=== PATIENT | male | born 1955 | race Caucasian/White ===

== ENCOUNTER 2017-09-04 08:46 | Outpatient (CLI) | payer BC ==
[2017-09-04 09:35] LABS: Bilirubin Negative (Negative); Blood, Urine Negative (Negative); Clarity CLEAR (Clear); Glucose, Urine (Dipstick) Negative (Negative); Leukocyte Negative (Negative); Nitrite Negative (Negative); Protein, Urine (Dipstick) Negative (Neg-Trace); Prothrombin Time 12.8 SEC (12.0-14.7); Specific Gravity, Urine 1.017 (1.002-1.036); Urobilinogen 0.2 mg/dL (0.2-1.0); pH, Urine 7.5 (5.0-9.0)
[2017-09-04 09:36] LABS: Bacteria/HPF None Seen HPF (None Seen); Hyaline Casts/LPF 0-3 HYALINE CAST LPF (0-3 Hyaline); RBC/HPF 0-3 HPF (0-3); Squamous Epithelial None Seen HPF (0-3); WBC/HPF None Seen HPF (0-3)
--- NOTE | 2017-09-04 23:42 | EKG ---
Test Reason : Blood Pressure : / mmHG Vent. Rate : 070 BPM Atrial Rate : 070 BPM P-R Int : 172 ms QRS Dur : 086 ms QT Int : 384 ms P-R-T Axes : 038 038 047 degrees QTc Int : 414 ms Normal sinus rhythm Normal ECG When compared with ECG of 19-FEB-2009 08:40, No significant change was found Confirmed by Fredy DE LA CRUZ ([id number]) on 09/04/2017 11:42:17 PM Referred By: FOUZIA Confirmed By:Fredy DE LA CRUZ
== END 2017-09-04 08:47 | disposition home or self-care (01) ==
LOC: LABBT 08:46
PROVIDERS: ATTEND Orthopaedic Surgery
DX: Z01.812 Encounter for preprocedural laboratory examination (principal); Z01.810 Encounter for preprocedural cardiovascular examination; M17.12 Unilateral primary osteoarthritis, left knee; Z88.5 Allergy status to narcotic agent
CPT/HCPCS: 81001; 85610; 86850; 86900; 86901; 87081; 93005; 93010

== ENCOUNTER 2017-09-10 05:28 | Day surgery (SDC) | payer BC ==
[2017-09-04 09:26] VITALS: BMI 30.4
[2017-09-10] MEDS ORDERED: CEFAZOLIN/Water 2 GM/20 ML SYRINGE ONE (06:00)
[2017-09-10] MEDS ORDERED: Tranexamic Acid 1,000 MG/100 ML BAG ONE ×2 (06:00→09:17)
[2017-09-10] MEDS ORDERED: Vancomycin HCl 1.5 GM in Sodium Chloride 0.9% 250 ML 300 ML IVPB SCH ×2 (06:15→18:00)
[2017-09-10] MEDS ORDERED: Midazolam HCl 2 mg/2 ml Vial ONE (06:24)
[2017-09-10] MEDS ORDERED: Fentanyl 100 MCG/2 ML VIAL ONE ×3 (06:24→10:06)
[2017-09-10] MEDS ORDERED: Ropivacaine 0.2% HCl/PF 20 ML ONE (06:25)
[2017-09-10] MEDS ORDERED: Lidocaine 1% (PF) 30 ML VIAL ONE (06:25)
[2017-09-10] MEDS ORDERED: Scopolamine 1.5 mg/72 hour Patch ONE (06:30)
[2017-09-10] MEDS ORDERED: HYDROcodone/Acetaminophen 5/325 mg Tablet PO PRN (06:47)
[2017-09-10] MEDS ORDERED: Zolpidem Tartrate 5 MG TAB PO PRN ×2 (06:47→07:36)
[2017-09-10] MEDS ORDERED: Ondansetron HCl/PF 4 MG/2 ML Vial IVP PRN ×3 (06:47→07:59)
[2017-09-10] MEDS ORDERED: Promethazine HCl 25 MG/ML VIAL IM PRN ×3 (06:47→07:59)
[2017-09-10] MEDS ORDERED: traMADol HCl 50 MG TAB PO PRN ×3 (06:47→07:36)
[2017-09-10] MEDS ORDERED: Ropivacaine 0.2% 550 ML 550 ML NERVE BLCK SCH (06:47)
[2017-09-10] MEDS ORDERED: Fentanyl 100 MCG/2 ML VIAL IV PRN (06:48)
[2017-09-10] MEDS ORDERED: Bupivacaine PF 0.5% 30 ML VIAL ONE (06:49)
[2017-09-10] MEDS ORDERED: Acetaminophen 325 MG TAB PO PRN (07:36)
[2017-09-10] MEDS ORDERED: HYDROcodone/Acetaminophen 10/325 mg Tablet PO PRN ×2 (07:36)
[2017-09-10] MEDS ORDERED: diphenhydrAMINE 25 MG CAP PO PRN (07:36)
[2017-09-10] MEDS ORDERED: Tranexamic Acid 1,000 MG in Sodium Chloride 0.9% 100 ML IVPB SCH (07:45)
[2017-09-10] MEDS ORDERED: Promethazine HCl 25 MG/ML VIAL SLOW IVP PRN (07:59)
[2017-09-10] MEDS ORDERED: Hydrochlorothiazide 25 MG TAB PO SCH ×2 (09:00→14:15)
--- NOTE | 2017-09-10 09:28 | OP ---
DATE OF PROCEDURE: 09/10/2017 PREOPERATIVE DIAGNOSIS: Left knee osteoarthrosis. POSTOPERATIVE DIAGNOSIS: Left knee osteoarthrosis. PROCEDURE PERFORMED: Left total knee replacement using Slemp pinless navigation. SURGEON: Alek Hsieh M.D. MANAGER SOURCING: Jasmeet Ascencio PA-C. BLOOD LOSS: Minimal. COMPLICATIONS: None. ANESTHESIA: He had general anesthetic, he also had a preoperative block. CONDITION: He did go to the recovery room in stable condition. IMPLANTS: Slemp Triathlon total knee system. Femur was size 7 cruciate retaining. Tibial basepla te was size 6 universal tibial baseplate. We used a 6 x 9 mm CSX3 tibial bearing and an asymmetric 3 2 x 10 X3 patella. DISPOSITION: He did go to the recovery room in stable condition. INDICATIONS: Mr. Gutierrez is a very active 62-year-old male who has significant left knee arthritis. At this time, he has failed nonoperative treatment and wished to have his knee replaced. PROCEDURE IN DETAIL: After all appropriate consent forms were explained and signed, the patient was t aken back to the Operating Room and at this time was given general anesthetic. Once the level of anes thesia was appropriate, a well-padded tourniquet was placed on the left leg and the leg was then prep ped and draped in standard surgical fashion. The limb was exsanguinated and tourniquet taken up to 30 0 mmHg. Midline incision was made with a 10 blade down through the skin and subcutaneous tissue. Bovi e electrocautery was used to coagulate any brisk venous bleeding. A new blade was used to make a medi al parapatellar arthrotomy. Small subperiosteal release was performed medially and excess fat pad was removed. The knee was flexed up to gain access to the femur. The femur was navigated and distal femo ral resection was made. Epicondylar access was used to align our sizing jig and this was pinned in pl joseline. We sized our femur to be a size7, 4:1 cutting block was applied and pinned. Anterior and posteri or chamfer cuts were then made. We navigated out our proximal tibia and made our proximal tibial rese ction. Spreaders were used to remove any posterior osteophytes off the back of the femur as well as r emaining meniscal tissue. A long alignment rodolfo was then used to achieve correct rotation of our tibia l baseplate and a size 6 was chosen. This was pinned in place. We trialed the polyethylene and a 6 x 9 mm CSX3 polyethylene gave us full extension and good stability throughout range of motion. Two towe l clips and a saw were used to cut our patella. Three lug nuts were drilled and 32 x 10 X3 patella wa s trialed which sat nicely in the trochlear groove. We then drilled our femur and punched our tibia. All components were removed. The knee was thoroughly irrigated and dried. Cement was mixed into the c ement gun on the back table. Components were then placed. The knee was held out in full extension unt il the cement had dried. All excess bone cement was removed. Multiple #2 Vicryl stitches as well as a Quill was used to close our extensor mechanism. 0 Quill followed by a running Monoderm was then use d to close the skin. Surgicel glue was then used on the skin. Once this had dried, soft tissue dressi ng was applied to the limb, tourniquet was let down, and the toes pinked up nicely. The patient was then awakened and taken to the Recovery Room in stable condition. All counts were correct at the end of the case. The patient did receive preoperative IV antibiotics. The patient was injected with Expa rel for postoperative pain relief.
[2017-09-10] MEDS: Sodium Chloride 0.9% 1,000 ML IV SCH ×2 (10:59→19:12)
[2017-09-10] MEDS: Multivitamin W/ Minerals 1 TAB PO SCH (11:00)
[2017-09-10] MEDS: Ferrous Gluconate 324 MG TAB PO SCH ×2 (11:00→20:23)
[2017-09-10] MEDS: Aspirin 325 MG TAB PO SCH ×2 (11:00→20:23)
[2017-09-10] MEDS: Senokot S 8.6-50 MG TAB PO SCH ×2 (11:01→20:24)
[2017-09-10] MEDS ORDERED: Ropivacaine 0.2% HCl/PF (40 MG/20 ML VIAL) ONE (11:58)
[2017-09-10] MEDS ORDERED: Ropivacaine 0.5% HCl/PF (150 MG/30 ML VIAL) ONE (11:58)
[2017-09-10] MEDS ORDERED: Ketorolac Tromethamine 30 MG/ML VIAL ONE (12:25)
[2017-09-10] MEDS ORDERED: ePHEDrine/0.9% NaCl/PF SYRINGE 50 mg/10 ml ONE (12:25)
[2017-09-10] MEDS ORDERED: Ondansetron HCl/PF 4 MG/2 ML Vial ONE (12:25)
[2017-09-10] MEDS ORDERED: Dexamethasone 20 MG/5 ML VIAL ONE (12:25)
[2017-09-10] MEDS ORDERED: PROPOFOL 200 MG/20 ML VIAL ONE (12:25)
--- NOTE | 2017-09-10 14:10 | PDOC.PN ---
- Subjective Encounter Start Date: 09/10/17 Encounter Start Time: 14:08 Patient seen and examined. No new complaints. No overnight events. Pain controlled. Records from Dr Aguilera's office reviewed. - Objective MAR Reviewed: Yes Vital Signs & Weight: Vital Signs (12 hours) Temp Pulse Resp BP Pulse Ox 09/10/17 11:13 97.7 F 64 18 94 L 09/10/17 10:56 97.7 F 64 18 110/68 94 L Weight Weight 212 lb EKG Reviewed by me: Yes (SR) Phys Exam - Physical Examination Constitutional: NAD Respiratory: no wheezing, no rhonchi Cardiovascular: RRR, no rub Gastrointestinal: soft, non-tender Musculoskeletal: no edema Neurological: moves all 4 limbs Dx/Plan - Plan DVT proph w/SCDs IMPRESSION: 1. HTN 2. CKD 2 3. Obesity BMI 30.4 4. DJD 5. HLD 6. Abn LFTS ?Fatty liver due to daily alcohol use 7. h/o Cardiac Ablation PLAN: * Cont Amlodipine with HCTZ - hold for SBP <120 * Meds for HLD per PCP - Avoid Statins due to Abn LFTs * LFTs in AM * Add PRN Meds * Full code * Will follow * Counselled to quit Alcohol use. * Thank you for this consultation. Laboratory Tests 08/31/17 08:48 Total Bilirubin 1.8 H Cholesterol 227 H LDL Cholesterol, Calc 152 HDL Cholesterol 60 Review of Systems - Review of Systems Respiratory: negative: Cough, Dry, Shortness of Breath, Hemoptysis, SOB with Excertion, Pleuritic Pain, Sputum, Wheezing Cardiovascular: negative: chest pain, palpitations, orthopnea, paroxysmal nocturnal dyspnea, edema, light headedness - Medications/Allergies Allergies/Adverse Reactions: Allergies Allergy/AdvReac Type Severity Reaction Status Date / Time codeine Allergy Nausea Verified 09/04/17 09:27 Medications: Current Medications Acetaminophen (Tylenol) 650 mg PO Q4H PRN PRN Reason: SALAZAR/ T > 101F; Mild Pain (1-3) Hydrocodone Bitart/Acetaminophen (Valmy 5/325) 1 tab PO Q4H PRN PRN Reason: Mild Pain (1-3) Hydrocodone Bitart/Acetaminophen (Valmy 5/325) 2 tab PO Q4H PRN PRN Reason: For Moderate Pain 4-6 Hydrocodone Bitart/Acetaminophen (Valmy 10/325) 1 tab PO Q4H PRN PRN Reason: Moderate Pain (4-6) Hydrocodone Bitart/Acetaminophen (Valmy 10/325) 2 tab PO Q4H PRN PRN Reason: Severe Pain (7-10) Amlodipine Besylate (Norvasc) 10 mg PO QPM [facility] Aspirin (Aspirin) 325 mg PO BID [facility] Last Admin: 09/10/17 11:00 Dose: Not Given Cefazolin Sodium (Ancef) 2 gm SLOW IVP Q8HR [facility] Stop: 09/10/17 22:01 Diphenhydramine HCl (Benadryl) 25 mg PO Q6H PRN PRN Reason: Itching Fentanyl (Sublimaze) 50 mcg IV Q1H PRN PRN Reason: BREAKTHROUGH PAIN Ferrous Gluconate (Fergon) 324 mg PO BID [facility] Last Admin: 09/10/17 11:00 Dose: Not Given Hydrochlorothiazide (Hydrochlorothiazide) 12.5 mg PO DAILY [facility] Last Admin: 09/10/17 11:56 Dose: 12.5 mg Ropivacaine (Ropivacaine 0.2% 550 Ml) 550 mls @ 0 mls/hr NERVE BLCK [facility]F [facility] PRN Reason: As Directed Sodium Chloride (Normal Saline 0.9%) 1,000 mls @ 100 mls/hr IV .Q10H [facility] Last Admin: 09/10/17 10:59 Dose: Not Given Vancomycin HCl 1.5 gm/ Sodium (Chloride) 300 mls @ 200 mls/hr IVPB 1800 [facility] Stop: 09/10/17 19:29 Iron/Minerals/Multivitamins (Theragran M) 1 tab PO DAILY [facility] Last Admin: 09/10/17 11:00 Dose: Not Given Ketorolac Tromethamine (Toradol) 30 mg IVP Q6H PRN PRN Reason: Moderate Pain (4-6) Stop: 09/13/17 06:48 Ondansetron HCl (Zofran) 4 mg IVP Q6H PRN PRN Reason: Nausea/Vomiting Promethazine HCl (Phenergan) 12.5 mg IM Q4H PRN PRN Reason: Nausea/Vomiting Senna/Docusate Sodium (Senokot S) 2 tab PO BID [facility] Last Admin: 09/10/17 11:01 Dose: Not Given Sodium Chloride (Flush - Normal Saline) 10 ml IVF PRN PRN PRN Reason: Saline Flush Tramadol HCl (Ultram) 100 mg PO Q6H PRN PRN Reason: Mild Pain (1-3) Zolpidem Tartrate (Ambien) 5 mg PO HSPRN PRN PRN Reason: Insomnia
[2017-09-10] MEDS ORDERED: hydrALAZINE 20 MG/ML VIAL SLOW IVP PRN (14:15)
[2017-09-10] MEDS ORDERED: Polyethylene Glycol 3350 17 GM Packet PO PRN (14:15)
[2017-09-10] MEDS: CEFAZOLIN/Water 2 GM/20 ML SYRINGE SLOW IVP SCH ×2 (16:23→22:34)
[2017-09-10] MEDS: HYDROcodone/Acetaminophen 5/325 mg Tablet PO PRN (20:28)
[2017-09-10] MEDS ORDERED: Amlodipine 10 MG TAB PO SCH ×2 (21:00)
[2017-09-11] MEDS: HYDROcodone/Acetaminophen 5/325 mg Tablet PO PRN ×4 (00:31→13:12)
[2017-09-11] MEDS: Sodium Chloride 0.9% 1,000 ML IV SCH ×2 (04:35→14:21)
[2017-09-11 04:37] LABS: Hemoglobin 12.1 g/dL (14.0-18.0); Mean Corpuscular HGB CONC 34.4 g/dL (32.0-36.0); Mean Corpuscular Hemoglobin 32.4 pg (27.0-31.0); Mean Corpuscular Volume 94.2 fl (80.0-94.0); Mean Platelet Volume 6.6 fL (7.4-10.4); Platelet Count 141 thou/uL (130-400); RBC Distribution Width 12.7 % (11.5-14.5); Red Blood Cell (RBC) Count 3.72 mill/uL (4.70-6.10); White Blood Cell (WBC) Count 10.8 thou/uL (4.8-10.8)
[2017-09-11 04:47] LABS: ALT (SGPT) 24 U/L (8-55); AST (SGOT) 12 U/L (5-34); Albumin 3.5 g/dL (3.5-5.0); Alkaline Phosphatase 62 U/L (40-150); Bilirubin, Direct 0.4 mg/dL (0.1-0.3); Protein, Total 5.5 g/dL (6.0-8.3)
[2017-09-11] MEDS: Ketorolac Tromethamine 30 MG/ML VIAL IVP PRN ×2 (07:48→14:17)
[2017-09-11] MEDS: Aspirin 325 MG TAB PO SCH (07:53)
[2017-09-11] MEDS: Ferrous Gluconate 324 MG TAB PO SCH (07:54)
[2017-09-11] MEDS: Senokot S 8.6-50 MG TAB PO SCH (07:54)
[2017-09-11] MEDS: Multivitamin W/ Minerals 1 TAB PO SCH (07:55)
[2017-09-11 12:16] VITALS: BP 139/85; TEMP 97.6
== END 2017-09-11 17:13 | disposition home or self-care (01) ==
LOC: SDC 05:28 → SJJU 07:36 → EDSTATUS 09:00 → SDC 09-11 17:13
PROVIDERS: ATTEND Orthopaedic Surgery
PROC: 0SRD069 Replacement of Left Knee Joint with Oxidized Zirconium on Polyethylene Synthetic Substitute, Cemented, Open Approach (ICD-10-PCS; principal; 2017-09-10)
DX: M17.12 Unilateral primary osteoarthritis, left knee (principal); M25.762 Osteophyte, left knee; I10 Essential (primary) hypertension; Z79.82 Long term (current) use of aspirin; Z79.899 Other long term (current) drug therapy; Z88.5 Allergy status to narcotic agent; Z98.818 Other dental procedure status; Z98.890 Other specified postprocedural states; Z85.828 Personal history of other malignant neoplasm of skin
CPT/HCPCS: 36415; 36416; 80076; 85027; A4306; C1713; C1776; G8978-GP-CK; G8979-GP-CJ; J1100; J1885; J2001; J2250; J2405; J2704; J2795; J3010; J3370; J7050; S0020

== ENCOUNTER 2018-12-18 19:52 | Emergency (ER) | payer BC ==
--- NOTE | 2018-12-18 20:53 | RAD ---
XR Finger(s) Lt Min 2 View History: [Injury.] Comparison: None. Findings: There is abnormal flexion deformity of the proximal interphalangeal joint of what appears t o be the middle finger. Likely an osseous injury of the dorsal aspect middle phalanx base middle finger. Impression: Flexion deformity proximal interphalangeal joint likely sequelae of central slip injury.
[2018-12-18] MEDS ORDERED: Ibuprofen 800 MG TAB ONE (21:14)
--- NOTE | 2018-12-18 21:44 | RAD ---
XR Finger(s) Lt Min 2 View History: [Post reduction] Comparison: Radiograph same day Findings: Improved alignment of the proximal interphalangeal joint middle finger. Moderate degenerati ve disease distal interphalangeal joint. Small flake of bone along the volar aspect of the middle phalanx base. Impression: Improved alignment postreduction.
== END 2018-12-18 22:25 | disposition home or self-care (01) ==
LOC: ERS 19:52
DX: S69.92XA Unspecified injury of left wrist, hand and finger(s), initial encounter (principal); I48.91 Unspecified atrial fibrillation; Z87.01 Personal history of pneumonia (recurrent); X58.XXXA Exposure to other specified factors, initial encounter